=== PATIENT | male | born 1980 | race Caucasian/White ===

== ENCOUNTER → 2016-10-05 | Outpatient (CLI) | payer OTHER ==
--- NOTE | ~2016-10-05 | NDGEN ---
PATIENT'S NAME: EDITH LIR[facility] AGE: 36 Y [address] ROOM: [place] [address] LOCATION: [facility] ADMIT DATE: 10/05/2016 [facility] DISCHARGE DATE: FAMILY PHYSICIAN: Sanjuanita De La Fuente PA-C ATTENDING PHYSICIAN: Sanjuanita De La Fuente PROCEDURE: ELECTROENCEPHALOGRAM DATE OF PROCEDURE: 10/05/2016 TEST: TECH: CLINICAL DIAGNOSIS: DURATION OF EE minutes. REASON FOR EEG: Seizures. CLINICAL HISTORY: The patient is a 36-year-old male, who has headaches and has episodes concerning for seizures. He is currently taking Paxil. EEG FINDINGS: The patient is awake for majority of the EEG with maximal activation of posterior background of about 11-12 hertz is seen in the posterior head regions. Activation procedures included photic stimulation between 3-30 hertz and hyperventilation for 2 minutes, which did not show any abnormalities. CLASSIFICATION: Normal awake, drowsy 10/20 scalp electrodes. IMPRESSION: This EEG is within normal limits. No epileptiform discharges or EEG seizures were seen during this recording. MD STEPHENIE EISENBERG/kg /[id number] dtt: 10/11/16 0651 BRAD RAM MOHAN R. dtd: 10/10/16 0653
== END | disposition disaster alternative care site (69) ==
LOC: GNEU 10:00
DX: R56.9 Unspecified convulsions (principal); R51 Headache